=== PATIENT | female | born 1980 | race Hispanic/Latino ===

== ENCOUNTER 2020-12-15 10:19 | Emergency (ER) | payer OTHER ==
[~2020-12-15] VITALS: Ht 167.6 cm; Wt 63.5 kg
[2020-12-15 10:40] VITALS: BP 105/64
[2020-12-15 10:57] LABS: APPEARANCE,URINE Clear (CLEAR); BILIRUBIN,URINE Negative (NEGATIVE); COLOR,URINE Yellow (YELLOW); GLUCOSE, URINE (UA) Negative (NEGATIVE); KETONES,URINE Negative (NEGATIVE); LEUKOCYTE ESTERASE ,URINE Moderate (NEGATIVE); NITRATE,URINE Negative (NEGATIVE); OCCULT BLOOD,URINE Negative (NEGATIVE); PROTEIN,URINE Negative (NEGATIVE); UROBILINOGEN,URINE 0.2 mg/dL (0.2-1.0)
[2020-12-15 11:33] LABS: RBC,URINE None Seen /HPF (0-1)
[2020-12-15 11:34] LABS: BACTERIA,URINE Moderate /HPF (None Seen)
[2020-12-15] MEDS ORDERED: PHEN-847 PO (11:51)
[2020-12-15] MEDS ORDERED: NITR100C4 PO (11:51)
[2020-12-15 12:08] VITALS: BP 101/64
== END 2020-12-15 12:08 | disposition home or self-care (01) ==
LOC: EDH 10:19
DX: N30.00 Acute cystitis without hematuria (principal); J45.909 Unspecified asthma, uncomplicated
CPT/HCPCS: 81001; 81025; 87077; 87088; 87186

== ENCOUNTER 2021-11-02 19:24 | Emergency (ER) | payer OTHER ==
[~2021-11-02] VITALS: Ht 167.6 cm; Wt 59.0 kg
[~2021-11-02 19:24] MED LIST: NITR100C4 PO; PHEN-847 PO
[2021-11-02 19:35] VITALS: BP 115/76
[2021-11-02] MEDS ORDERED: ACET-66 PO (20:38)
[2021-11-02] MEDS ORDERED: GUAI-1170 PO (20:38)
[2021-11-02] MEDS ORDERED: IBUP-2070 PO (20:38)
== END 2021-11-02 20:43 | disposition home or self-care (01) ==
LOC: EDH 19:24
DX: U07.1 COVID-19 (principal); E11.9 Type 2 diabetes mellitus without complications; J45.909 Unspecified asthma, uncomplicated; Z79.4 Long term (current) use of insulin
CPT/HCPCS: 87635; 87804 ×2; 99283; C9803